=== PATIENT | female | born 1945 | race Caucasian/White ===

== ENCOUNTER 2021-03-14 12:58 | Inpatient (IN) | payer MEDICARE ==
[~2021-03-14] VITALS: Ht 149.9 cm; Wt 75.3 kg
[2021-03-14] MEDS ORDERED: ASPIRIN 81 MG CHEW TAB PO ONE (13:00)
[2021-03-14 13:48] LABS: BASOPHILS # (AUTO) 0.1 (0.0-0.1); BASOPHILS % 0.8 % (0.0-1.0); EOSINOPHILS # (AUTO) 0.3 (0.0-0.4); EOSINOPHILS % 2.4 % (0.0-6.0); HEMATOCRIT 41.5 % (34.2-44.1); HEMOGLOBIN 13.2 g/dL (12.0-16.0); LYMPHOCYTES # (AUTO) 2.6 (1.0-3.2); LYMPHOCYTES % 22.3 % (18.0-39.1); MEAN CORPUSCULAR HEMOGLOBIN 26.2 pg (28-32); MEAN CORPUSCULAR HGB CONC 31.8 g/dL (31-35); MEAN CORPUSCULAR VOLUME 82.5 fL (81-99); MONOCYTES # (AUTO) 0.3 (0.2-0.8); MONOCYTES % 2.4 % (4.4-11.3); NEUTROPHILS % 68.2 % (38.7-80.0); PLATELET COUNT 221 x10e3/uL (140-360); RED BLOOD COUNT 5.03 x10e6/uL (3.6-5.1); RED CELL DISTRIBUTION WIDTH 17.4 % (11.7-14.4)
[2021-03-14 14:03] LABS: ALANINE AMINOTRANSFERASE 21 IU/L (0-55); ALBUMIN 4.2 g/dL (3.5-5.0); ALBUMIN/GLOBULIN RATIO 1.4 (0.8-2.0); ALKALINE PHOSPHATASE 89 IU/L (40-150); ANION GAP 21.8 mmol/L (8-16); BLOOD UREA NITROGEN 15 mg/dL (7-26); BUN/CREATININE RATIO 21 (6-25); CALCIUM 8.9 mg/dL (8.4-10.2); CARBON DIOXIDE 22 mmol/L (22-29); CHLORIDE 95 mmol/L (98-107); CREATINE KINASE 41 IU/L (29-168); EST GLOMERULAR FILTRATION RATE > 60 ML/MIN (60-); GLUCOSE 103 mg/dL (74-118); POTASSIUM 3.8 mmol/L (3.5-5.1); SODIUM 135 mmol/L (136-145)
[2021-03-14 14:13] LABS: CLARITY,URINE SL CLOUDY (CLEAR); COLOR,URINE YELLOW (YELLOW); LEUKOCYTE ESTERASE ,URINE NEGATIVE (NEGATIVE); NITRITE,URINE POSITIVE (NEGATIVE); PROTEIN,URINE DIPSTICK 1+ (NEGATIVE)
[2021-03-14 14:14] LABS: KETONES,URINE 2+ (NEGATIVE); URINE UROBILINOGEN 1 mg/dL (0.2 - 1)
[2021-03-14 14:17] LABS: BACTERIA,URINE MANY /HPF; RBC,URINE 0-5 /HPF (0-5); WBC,URINE (MAN) 0-5 /HPF (0-5)
[2021-03-14] MEDS: PIPERACILLIN/TAZOBAC 3.375 GM in SODIUM CHLORIDE 0.9% 50ML 50 ML IV SCH ×2 (14:35→21:00)
[2021-03-14] MEDS ORDERED: SODIUM CHLORIDE 0.9% 1000ML 1,000 ML IV SCH (15:45)
[2021-03-14 20:00] VITALS: BP 147/59
[2021-03-14] MEDS ORDERED: PREGABALIN200 MG PO (20:21)
[2021-03-14] MEDS ORDERED: SIMVASTATIN20 MG PO (20:21)
[2021-03-14] MEDS ORDERED: BUPROPION HCL100 M1 PO (20:21)
[2021-03-14] MEDS ORDERED: CITALOPRAM HBR20 MG PO (20:21)
[2021-03-14] MEDS ORDERED: CELECOXIB100 MG PO (20:21)
[2021-03-14] MEDS ORDERED: OMEPRAZOLE40 MG PO (20:21)
[2021-03-14] MEDS ORDERED: HYDROCODON-ACE1 EAC9 PO (20:21)
[2021-03-14] MEDS ORDERED: PIPERACILLIN/TAZOBAC 3.375 GM VIAL ONE (20:48)
[2021-03-14] MEDS ORDERED: SODIUM CHLORIDE 0.9% 50ML 50 ML ONE (20:49)
[2021-03-14] MEDS: SODIUM CHLORIDE 0.9% 1000ML 1,000 ML IV SCH (21:45)
[2021-03-14] MEDS ORDERED: DOCUSATE SODIUM 100 MG CAP PO PRN (21:45)
[2021-03-14] MEDS ORDERED: MELATONIN 5 MG TABLET PO PRN (21:45)
[2021-03-14] MEDS ORDERED: HYDROCODONE/APAP 10MG-325MG TAB PO PRN (21:45)
[2021-03-14] MEDS ORDERED: ONDANSETRON HCL INJ 2MG/ML 2ML 2 MG/ML VIAL IV PRN (21:45)
[2021-03-14 23:05] LABS: CREATINE KINASE MB 1.4 ng/mL (0-5.0)
[2021-03-15] VITALS (8 sets, daily range): BP systolic 107–155; BP diastolic 59–98
[2021-03-15] MEDS ORDERED: PIPERACILLIN/TAZOBAC 3.375 GM VIAL ONE ×3 (03:15→14:25)
[2021-03-15] MEDS ORDERED: SODIUM CHLORIDE 0.9% 50ML 50 ML ONE ×3 (03:18→14:25)
[2021-03-15] MEDS: PIPERACILLIN/TAZOBAC 3.375 GM in SODIUM CHLORIDE 0.9% 50ML 50 ML IV SCH ×2 (03:23→09:12)
[2021-03-15 06:34] LABS: BASOPHILS # (AUTO) 0.1 (0.0-0.1); BASOPHILS % 0.5 % (0.0-1.0); EOSINOPHILS # (AUTO) 0.1 (0.0-0.4); EOSINOPHILS % 0.9 % (0.0-6.0); HEMATOCRIT 38.9 % (34.2-44.1); HEMOGLOBIN 12.1 g/dL (12.0-16.0); LYMPHOCYTES # (AUTO) 1.2 (1.0-3.2); LYMPHOCYTES % 11.5 % (18.0-39.1); MEAN CORPUSCULAR HEMOGLOBIN 25.9 pg (28-32); MEAN CORPUSCULAR HGB CONC 31.1 g/dL (31-35); MEAN CORPUSCULAR VOLUME 83.3 fL (81-99); MONOCYTES # (AUTO) 1.3 (0.2-0.8); MONOCYTES % 11.8 % (4.4-11.3); NEUTROPHILS # (AUTO) 7.7 (2.1-6.9); NEUTROPHILS % 72.1 % (38.7-80.0); PLATELET COUNT 202 x10e3/uL (140-360); RED BLOOD COUNT 4.67 x10e6/uL (3.6-5.1); RED CELL DISTRIBUTION WIDTH 17.5 % (11.7-14.4)
[2021-03-15 06:54] LABS: ALANINE AMINOTRANSFERASE 19 IU/L (0-55); ALBUMIN 3.9 g/dL (3.5-5.0); ALBUMIN/GLOBULIN RATIO 1.5 (0.8-2.0); ALKALINE PHOSPHATASE 79 IU/L (40-150); ANION GAP 21.7 mmol/L (8-16); BLOOD UREA NITROGEN 19 mg/dL (7-26); BUN/CREATININE RATIO 26 (6-25); CALCIUM 8.7 mg/dL (8.4-10.2); CARBON DIOXIDE 17 mmol/L (22-29); CHLORIDE 102 mmol/L (98-107); CREATININE, SERUM 0.72 mg/dL (0.57-1.11); EST GLOMERULAR FILTRATION RATE > 60 ML/MIN (60-); GLUCOSE 100 mg/dL (74-118); POTASSIUM 3.7 mmol/L (3.5-5.1); SODIUM 137 mmol/L (136-145)
[2021-03-15 07:21] LABS: CREATINE KINASE MB 1.5 ng/mL (0-5.0)
[2021-03-15] MEDS ORDERED: SODIUM CHLORIDE 0.9% 1000ML 1,000 ML IV ONE (08:00)
[2021-03-15] MEDS: BUPROPION HCL 100 MG PO SCH (09:00)
[2021-03-15] MEDS: CELECOXIB 100 MG CAP PO SCH ×2 (09:12→17:05)
[2021-03-15] MEDS: CITALOPRAM HYDROBROMIDE 20 MG TAB PO SCH (09:12)
[2021-03-15] MEDS: PREGABALIN 50 MG CAP PO SCH ×2 (09:13→17:05)
[2021-03-15] MEDS: SIMVASTATIN 20 MG TAB PO SCH (09:13)
[2021-03-15] MEDS: PANTOPRAZOLE SOD 40 MG TABEC PO SCH (09:13)
[2021-03-15 13:27] LABS: THYROID STIMULATING HORMONE 1.455 uIU/mL (0.350-4.940)
[2021-03-15] MEDS ORDERED: CEFTRIAXONE SOD 2 GM/100 ML ML IV SCH (14:30)
[2021-03-15] MEDS: SODIUM CHLORIDE 0.9% 1000ML 1,000 ML IV SCH ×2 (14:49→22:06)
[2021-03-15] MEDS: CEFTRIAXONE SOD 2 GM 100 ML IV SCH (15:50)
[2021-03-15] MEDS: HYDROCODONE/APAP 10MG-325MG TAB PO PRN (17:00)
[2021-03-16] VITALS (9 sets, daily range): BP systolic 116–171; BP diastolic 67–108
[2021-03-16] MEDS: SODIUM CHLORIDE 0.9% 1000ML 1,000 ML IV SCH ×3 (00:45→16:53)
[2021-03-16] MEDS ORDERED: IOPAMIDOL 370 MG/ML 200 ML INFUS..BTL INJ ONE ×2 (05:56→22:25)
[2021-03-16] MEDS ORDERED: SODIUM CHLORIDE 0.9% 50ML 50 ML ONE ×2 (05:57→22:26)
[2021-03-16 06:06] LABS: BASOPHILS # (AUTO) 0.1 (0.0-0.1); BASOPHILS % 0.4 % (0.0-1.0); EOSINOPHILS # (AUTO) 0.2 (0.0-0.4); EOSINOPHILS % 1.3 % (0.0-6.0); HEMATOCRIT 38.5 % (34.2-44.1); HEMOGLOBIN 12.1 g/dL (12.0-16.0); LYMPHOCYTES # (AUTO) 1.2 (1.0-3.2); LYMPHOCYTES % 9.9 % (18.0-39.1); MEAN CORPUSCULAR HEMOGLOBIN 26.3 pg (28-32); MEAN CORPUSCULAR HGB CONC 31.4 g/dL (31-35); MEAN CORPUSCULAR VOLUME 83.7 fL (81-99); MONOCYTES # (AUTO) 1.5 (0.2-0.8); MONOCYTES % 12.4 % (4.4-11.3); NEUTROPHILS # (AUTO) 8.7 (2.1-6.9); NEUTROPHILS % 72.4 % (38.7-80.0); PLATELET COUNT 250 x10e3/uL (140-360); RED CELL DISTRIBUTION WIDTH 17.7 % (11.7-14.4)
[2021-03-16 06:35] LABS: ANION GAP 20.2 mmol/L (8-16); BLOOD UREA NITROGEN 16 mg/dL (7-26); BUN/CREATININE RATIO 23 (6-25); CALCIUM 8.5 mg/dL (8.4-10.2); CARBON DIOXIDE 17 mmol/L (22-29); CHLORIDE 106 mmol/L (98-107); EST GLOMERULAR FILTRATION RATE > 60 ML/MIN (60-); GLUCOSE 107 mg/dL (74-118); POTASSIUM 3.2 mmol/L (3.5-5.1); SODIUM 140 mmol/L (136-145)
[2021-03-16] MEDS ORDERED: POTASSIUM CHLORIDE 20 MEQ TAB CR PO STA (07:59)
[2021-03-16 08:24] LABS: INR 1.07; PARTIAL THROMBOPLASTIN TIME 33.4 seconds (23.8-35.5); PROTHROMBIN TIME 14.5 seconds (11.9-14.5)
[2021-03-16] MEDS: BUPROPION HCL 100 MG PO SCH (09:00)
[2021-03-16] MEDS: SIMVASTATIN 20 MG TAB PO SCH (09:06)
[2021-03-16] MEDS: CITALOPRAM HYDROBROMIDE 20 MG TAB PO SCH (09:06)
[2021-03-16] MEDS: CELECOXIB 100 MG CAP PO SCH ×2 (09:06→17:11)
[2021-03-16] MEDS: PREGABALIN 50 MG CAP PO SCH ×2 (09:06→17:11)
[2021-03-16] MEDS: PANTOPRAZOLE SOD 40 MG TABEC PO SCH (09:06)
[2021-03-16] MEDS ORDERED: EPINEPHRINE HCL SYRINGE ONE (12:30)
[2021-03-16] MEDS ORDERED: SODIUM BICARBONATE 8.4% INJ 50 ML SYR ONE (12:30)
[2021-03-16] MEDS: VANCOMYCIN 1GM/NS 250 ML 250 ML IV SCH (13:41)
[2021-03-16] MEDS: HYDROCODONE/APAP 10MG-325MG TAB PO PRN (15:20)
[2021-03-16] MEDS ORDERED: HYDRALAZINE HCL 20 MG/ML VIAL IV PRN (16:30)
[2021-03-16] MEDS: CEFTRIAXONE SOD 2 GM 100 ML IV SCH (16:53)
[2021-03-16] MEDS ORDERED: DIPHENHYDRAMINE HCL INJ 50 MG/ML VIAL IV PRN (18:15)
[2021-03-16 21:30] LABS: HEMATOCRIT 43.6 % (34.2-44.1); HEMOGLOBIN 13.2 g/dL (12.0-16.0); MEAN CORPUSCULAR HEMOGLOBIN 26.3 pg (28-32); MEAN CORPUSCULAR HGB CONC 30.3 g/dL (31-35); MEAN CORPUSCULAR VOLUME 86.9 fL (81-99); PLATELET COUNT 206 x10e3/uL (140-360); RED BLOOD COUNT 5.02 x10e6/uL (3.6-5.1); RED CELL DISTRIBUTION WIDTH 18.3 % (11.7-14.4)
[2021-03-16 21:49] LABS: ALANINE AMINOTRANSFERASE 137 IU/L (0-55); ALBUMIN 3.4 g/dL (3.5-5.0); ALBUMIN/GLOBULIN RATIO 1.3 (0.8-2.0); ALKALINE PHOSPHATASE 77 IU/L (40-150); ANION GAP 23.6 mmol/L (8-16); BLOOD UREA NITROGEN 18 mg/dL (7-26); BUN/CREATININE RATIO 22 (6-25); CARBON DIOXIDE 16 mmol/L (22-29); CHLORIDE 111 mmol/L (98-107); CREATINE KINASE 123 IU/L (29-168); CREATININE, SERUM 0.81 mg/dL (0.57-1.11); EST GLOMERULAR FILTRATION RATE > 60 ML/MIN (60-); GLUCOSE 165 mg/dL (74-118); POTASSIUM 3.6 mmol/L (3.5-5.1); SODIUM 147 mmol/L (136-145)
[2021-03-16] MEDS: PROPOFOL IV EMULSION 10MG/ML 100 ML IV PRN (22:30)
[2021-03-16] MEDS ORDERED: AMIODARONE HCL 900 MG in DEXTROSE 5% 500ML 500 ML IV ONE (23:30)
[2021-03-16 23:36] LABS: BAND NEUTROPHILS % (MANUAL) 2 %; EOSINOPHILS % (MANUAL) 1 % (0-7); LYMPHOCYTES % (MANUAL) 10 % (19-48); METAMYELOCYTES % (MANUAL) 5 % (0-0); MONOCYTES % (MANUAL) 4 % (3.4-9.0); MYELOCYTES % (MANUAL) 1 % (0-0); NEUTROPHILS % (MANUAL) 76 % (40-74); NUCLEATED RED BLOOD CELLS 1; PROMYELOCYTES % (MANUAL) 1 % (0-0); SMUDGE CELLS FEW
[2021-03-16 23:37] LABS: PLATELET ESTIMATE ADEQUATE
[2021-03-16 23:38] LABS: PLATELET MORPHOLOGY COMMENT NORMAL; RBC MORPHOLOGY COMMENT NORMAL
[2021-03-16] MEDS ORDERED: AMIODARONE 900MG 500 ML IV ONE (23:39)
[2021-03-17] VITALS (17 sets, daily range): BP systolic 118–169; BP diastolic 54–100
[2021-03-17] MEDS ORDERED: HEPARIN SOD (PORCINE) 5,000 UNIT/ML VIAL IV ONE
[2021-03-17] MEDS ORDERED: HEPARIN 25,000 UNIT DRIP IV ONE
[2021-03-17] MEDS ORDERED: NOREPINEPHRINE INJ 4MG/4ML 8 MG in DEXTROSE 5% 250ML 250 ML IV PRN ×2
[2021-03-17] MEDS: HEPARIN 25,000 UNIT 1,400 UNIT in DEXTROSE 5% 250ML 250 ML IV SCH (00:30)
[2021-03-17 00:37] LABS: INR 1.13; PROTHROMBIN TIME 15.2 seconds (11.9-14.5)
[2021-03-17 00:38] LABS: PARTIAL THROMBOPLASTIN TIME 31.5 seconds (23.8-35.5)
[2021-03-17] MEDS: VANCOMYCIN 1GM/NS 250 ML 250 ML IV SCH ×2 (01:16→13:33)
[2021-03-17 04:46] LABS: BASOPHILS % 0.2 % (0.0-1.0); EOSINOPHILS % 0.1 % (0.0-6.0); HEMATOCRIT 36.9 % (34.2-44.1); HEMOGLOBIN 11.7 g/dL (12.0-16.0); LYMPHOCYTES # (AUTO) 1.4 (1.0-3.2); MEAN CORPUSCULAR HEMOGLOBIN 26.5 pg (28-32); MEAN CORPUSCULAR HGB CONC 31.7 g/dL (31-35); MONOCYTES # (AUTO) 1.6 (0.2-0.8); MONOCYTES % 8.4 % (4.4-11.3); NEUTROPHILS # (AUTO) 15.4 (2.1-6.9); NEUTROPHILS % 79.7 % (38.7-80.0); PLATELET COUNT 225 x10e3/uL (140-360); RED BLOOD COUNT 4.42 x10e6/uL (3.6-5.1); RED CELL DISTRIBUTION WIDTH 17.6 % (11.7-14.4)
[2021-03-17 04:53] LABS: MEAN CORPUSCULAR VOLUME 83.5 fL (81-99)
[2021-03-17 05:12] LABS: CREATINE KINASE MB 15.5 ng/mL (0-5.0)
[2021-03-17 05:57] LABS: ANION GAP 22.7 mmol/L (8-16); BLOOD UREA NITROGEN 17 mg/dL (7-26); BUN/CREATININE RATIO 25 (6-25); CALCIUM 7.9 mg/dL (8.4-10.2); CARBON DIOXIDE 17 mmol/L (22-29); CHLORIDE 108 mmol/L (98-107); CREATININE, SERUM 0.69 mg/dL (0.57-1.11); EST GLOMERULAR FILTRATION RATE > 60 ML/MIN (60-); GLUCOSE 140 mg/dL (74-118); SODIUM 145 mmol/L (136-145)
[2021-03-17 05:58] LABS: POTASSIUM 2.7 mmol/L (3.5-5.1)
[2021-03-17] MEDS ORDERED: POTASSIUM CHLORIDE 20MEQ/100ML 200 ML IV ONE (07:00)
[2021-03-17 07:42] LABS: ABG HCO3 20 mmol/L (22-26); ABG PCO2 22 mmHg (35-45); ABG PH 7.57 (7.35-7.45); ABG PO2 190 mmHg (80-105); ABG TCO2 20
[2021-03-17] MEDS: SIMVASTATIN 20 MG TAB PO SCH (08:15)
[2021-03-17] MEDS: PANTOPRAZOLE 40 MG 10ML VIAL IV SCH (08:15)
[2021-03-17] MEDS: PREGABALIN 50 MG CAP PO SCH ×2 (08:15→16:07)
[2021-03-17] MEDS: CITALOPRAM HYDROBROMIDE 20 MG TAB PO SCH (08:15)
[2021-03-17] MEDS: CELECOXIB 100 MG CAP PO SCH (08:28)
[2021-03-17] MEDS: BUPROPION HCL 100 MG PO SCH (08:28)
[2021-03-17] MEDS ORDERED: HYDRALAZINE HCL 20 MG/ML VIAL IV PRN (10:15)
[2021-03-17 11:07] LABS: ABG HCO3 21 mmol/L (22-26); ABG PCO2 30 mmHg (35-45); ABG PH 7.45 (7.35-7.45); ABG PO2 100 mmHg (80-105); ABG TCO2 22
[2021-03-17] MEDS ORDERED: SUCCINYLCHOLINE CHLORIDE 20 MG/ML 10ML VIAL ONE (12:28)
[2021-03-17] MEDS: CEFTRIAXONE SOD 2 GM 100 ML IV SCH (14:58)
[2021-03-17] MEDS ORDERED: NOREPINEPHRINE 8 MG/D5W 250 ML 250 ML IV SCH (17:30)
[2021-03-18] VITALS (17 sets, daily range): BP systolic 116–185; BP diastolic 67–131
[2021-03-18] MEDS: VANCOMYCIN 1GM/NS 250 ML 250 ML IV SCH (00:35)
[2021-03-18] MEDS: HEPARIN 25,000 UNIT 1,400 UNIT in DEXTROSE 5% 250ML 250 ML IV SCH ×2 (01:31→10:30)
[2021-03-18] MEDS: PROPOFOL IV EMULSION 10MG/ML 100 ML IV PRN (01:32)
[2021-03-18] MEDS ORDERED: HEPARIN 25,000 UNIT DRIP IV ONE (01:37)
[2021-03-18 04:56] LABS: BASOPHILS # (AUTO) 0.1 (0.0-0.1); BASOPHILS % 0.6 % (0.0-1.0); EOSINOPHILS # (AUTO) 0.2 (0.0-0.4); EOSINOPHILS % 0.9 % (0.0-6.0); HEMATOCRIT 39.2 % (34.2-44.1); HEMOGLOBIN 12.4 g/dL (12.0-16.0); LYMPHOCYTES # (AUTO) 1.5 (1.0-3.2); LYMPHOCYTES % 7.8 % (18.0-39.1); MEAN CORPUSCULAR HEMOGLOBIN 26.6 pg (28-32); MEAN CORPUSCULAR HGB CONC 31.6 g/dL (31-35); MEAN CORPUSCULAR VOLUME 83.9 fL (81-99); MONOCYTES # (AUTO) 1.4 (0.2-0.8); MONOCYTES % 7.7 % (4.4-11.3); NEUTROPHILS % 75.4 % (38.7-80.0); PLATELET COUNT 232 x10e3/uL (140-360); RED BLOOD COUNT 4.67 x10e6/uL (3.6-5.1); RED CELL DISTRIBUTION WIDTH 18.2 % (11.7-14.4)
[2021-03-18 05:22] LABS: ALANINE AMINOTRANSFERASE 73 IU/L (0-55); ALBUMIN 3.1 g/dL (3.5-5.0); ALBUMIN/GLOBULIN RATIO 1.2 (0.8-2.0); ALKALINE PHOSPHATASE 78 IU/L (40-150); ANION GAP 15.7 mmol/L (8-16); BLOOD UREA NITROGEN 14 mg/dL (7-26); BUN/CREATININE RATIO 23 (6-25); CALCIUM 8.1 mg/dL (8.4-10.2); CARBON DIOXIDE 22 mmol/L (22-29); CHLORIDE 106 mmol/L (98-107); EST GLOMERULAR FILTRATION RATE > 60 ML/MIN (60-); GLUCOSE 128 mg/dL (74-118); SODIUM 141 mmol/L (136-145)
[2021-03-18 05:25] LABS: POTASSIUM 2.7 mmol/L (3.5-5.1)
[2021-03-18] MEDS ORDERED: POTASSIUM CHLORIDE 20MEQ/100ML 200 ML IV ONE (05:30)
[2021-03-18] MEDS ORDERED: POTASSIUM CHLORIDE 20MEQ/100ML 200 ML ONE (05:41)
[2021-03-18] MEDS ORDERED: METOPROLOL TARTRATE 50 MG TAB NG ONE (06:15)
[2021-03-18] MEDS ORDERED: METOPROLOL TARTRATE INJ 1 MG/ML VIAL IV ONE (06:15)
[2021-03-18] MEDS: BUPROPION HCL 100 MG PO SCH (07:19)
[2021-03-18] MEDS: PREGABALIN 50 MG CAP PO SCH (08:41)
[2021-03-18] MEDS: CITALOPRAM HYDROBROMIDE 20 MG TAB PO SCH (08:41)
[2021-03-18] MEDS: SIMVASTATIN 20 MG TAB PO SCH (08:41)
[2021-03-18] MEDS: PANTOPRAZOLE 40 MG 10ML VIAL IV SCH (08:41)
[2021-03-18] MEDS ORDERED: LEVETIRACETAM 500MG/5ML VIAL 2,000 MG in SODIUM CHLORIDE 0.9% 100 ML 100 ML IV ONE (09:30)
[2021-03-18] MEDS: AMIODARONE HCL 200 MG TAB PO SCH ×2 (09:33→17:02)
[2021-03-18 10:10] LABS: ABG PCO2 36 mmHg (35-45); ABG PH 7.46 (7.35-7.45)
[2021-03-18 10:11] LABS: ABG HCO3 26 mmol/L (22-26); ABG PO2 85 mmHg (80-105); ABG TCO2 27
[2021-03-18] MEDS: METOPROLOL TARTRATE 25 MG TAB NG SCH ×3 (12:05→23:45)
[2021-03-18] MEDS: NYSTATIN 15 GM POWDER UD BTL TOP SCH (13:08)
[2021-03-18] MEDS: ACETAMINOPHEN 325 MG TAB PO PRN (13:32)
[2021-03-18] MEDS: CEFTRIAXONE SOD 2 GM 100 ML IV SCH (14:02)
[2021-03-18] MEDS: LEVETIRACETAM 500MG/5ML VIAL 500 MG in SODIUM CHLORIDE 0.9% 100 ML 100 ML IV SCH (18:49)
[2021-03-19] VITALS (26 sets, daily range): BP systolic 107–168; BP diastolic 54–83
[2021-03-19] MEDS: NYSTATIN 15 GM POWDER UD BTL TOP SCH (05:30)
[2021-03-19] MEDS: METOPROLOL TARTRATE 25 MG TAB NG SCH ×4 (06:31→23:16)
[2021-03-19] MEDS: LEVETIRACETAM 500MG/5ML VIAL 500 MG in SODIUM CHLORIDE 0.9% 100 ML 100 ML IV SCH ×2 (06:31→17:30)
[2021-03-19] MEDS ORDERED: POTASSIUM CHLORIDE 20MEQ/100ML 200 ML IV ONE (07:30)
[2021-03-19 07:51] LABS: BASOPHILS # (AUTO) 0.1 (0.0-0.1); BASOPHILS % 0.6 % (0.0-1.0); EOSINOPHILS % 0.1 % (0.0-6.0); HEMATOCRIT 40.5 % (34.2-44.1); HEMOGLOBIN 12.7 g/dL (12.0-16.0); LYMPHOCYTES # (AUTO) 1.5 (1.0-3.2); LYMPHOCYTES % 8.5 % (18.0-39.1); MEAN CORPUSCULAR HEMOGLOBIN 26.6 pg (28-32); MEAN CORPUSCULAR HGB CONC 31.4 g/dL (31-35); MEAN CORPUSCULAR VOLUME 84.9 fL (81-99); MONOCYTES # (AUTO) 1.5 (0.2-0.8); MONOCYTES % 8.4 % (4.4-11.3); NEUTROPHILS # (AUTO) 13.1 (2.1-6.9); NEUTROPHILS % 75.6 % (38.7-80.0); PLATELET COUNT 218 x10e3/uL (140-360); RED BLOOD COUNT 4.77 x10e6/uL (3.6-5.1); RED CELL DISTRIBUTION WIDTH 19.1 % (11.7-14.4)
[2021-03-19 08:38] LABS: ALANINE AMINOTRANSFERASE 41 IU/L (0-55); ALBUMIN 2.8 g/dL (3.5-5.0); ALKALINE PHOSPHATASE 75 IU/L (40-150); ANION GAP 13.2 mmol/L (8-16); BLOOD UREA NITROGEN 24 mg/dL (7-26); BUN/CREATININE RATIO 41 (6-25); CALCIUM 8.4 mg/dL (8.4-10.2); CARBON DIOXIDE 26 mmol/L (22-29); CHLORIDE 108 mmol/L (98-107); CREATININE, SERUM 0.59 mg/dL (0.57-1.11); EST GLOMERULAR FILTRATION RATE > 60 ML/MIN (60-); GLUCOSE 155 mg/dL (74-118); POTASSIUM 3.2 mmol/L (3.5-5.1); SODIUM 144 mmol/L (136-145)
[2021-03-19] MEDS: BUPROPION HCL 100 MG PO SCH (08:59)
[2021-03-19] MEDS: SIMVASTATIN 20 MG TAB PO SCH (08:59)
[2021-03-19] MEDS: CITALOPRAM HYDROBROMIDE 20 MG TAB PO SCH (08:59)
[2021-03-19] MEDS: PANTOPRAZOLE 40 MG 10ML VIAL IV SCH (08:59)
[2021-03-19] MEDS: AMIODARONE HCL 200 MG TAB PO SCH ×2 (08:59→17:28)
[2021-03-19 11:27] LABS: ABG HCO3 27 mmol/L (22-26); ABG PCO2 37 mmHg (35-45); ABG PH 7.46 (7.35-7.45); ABG PO2 92 mmHg (80-105); ABG TCO2 28
[2021-03-19 12:46] LABS: LYMPHOCYTES % (MANUAL) 7 % (19-48); MONOCYTES % (MANUAL) 6 % (3.4-9.0); NEUTROPHILS % (MANUAL) 84 % (40-74); NUCLEATED RED BLOOD CELLS 5
[2021-03-19 12:47] LABS: PLATELET ESTIMATE ADEQUATE; PLATELET MORPHOLOGY COMMENT NORMAL; RBC MORPHOLOGY COMMENT ABNORMAL
[2021-03-19 12:49] LABS: POLYCHROMASIA FEW
[2021-03-19] MEDS: CEFTRIAXONE SOD 2 GM 100 ML IV SCH (14:44)
[2021-03-20] VITALS (26 sets, daily range): BP systolic 136–153; BP diastolic 57–77
[2021-03-20] MEDS: HEPARIN 25,000 UNIT 1,400 UNIT in DEXTROSE 5% 250ML 250 ML IV SCH ×2
[2021-03-20] MEDS: ACETAMINOPHEN 325 MG TAB PO PRN (03:19)
[2021-03-20 05:58] LABS: BASOPHILS # (AUTO) 0.1 (0.0-0.1); BASOPHILS % 0.5 % (0.0-1.0); EOSINOPHILS % 0.1 % (0.0-6.0); HEMATOCRIT 39.9 % (34.2-44.1); HEMOGLOBIN 12.4 g/dL (12.0-16.0); LYMPHOCYTES # (AUTO) 1.6 (1.0-3.2); LYMPHOCYTES % 9.6 % (18.0-39.1); MEAN CORPUSCULAR HEMOGLOBIN 26.9 pg (28-32); MEAN CORPUSCULAR HGB CONC 31.1 g/dL (31-35); MEAN CORPUSCULAR VOLUME 86.6 fL (81-99); MONOCYTES # (AUTO) 1.8 (0.2-0.8); MONOCYTES % 10.6 % (4.4-11.3); NEUTROPHILS % 72.7 % (38.7-80.0); PLATELET COUNT 235 x10e3/uL (140-360); RED BLOOD COUNT 4.61 x10e6/uL (3.6-5.1); RED CELL DISTRIBUTION WIDTH 19.2 % (11.7-14.4)
[2021-03-20] MEDS: METOPROLOL TARTRATE 25 MG TAB NG SCH ×3 (06:26→17:14)
[2021-03-20] MEDS: LEVETIRACETAM 500MG/5ML VIAL 500 MG in SODIUM CHLORIDE 0.9% 100 ML 100 ML IV SCH ×2 (06:31→17:14)
[2021-03-20 06:40] LABS: ALANINE AMINOTRANSFERASE 30 IU/L (0-55); ALBUMIN 2.8 g/dL (3.5-5.0); ALBUMIN/GLOBULIN RATIO 1.1 (0.8-2.0); ALKALINE PHOSPHATASE 68 IU/L (40-150); ANION GAP 13.4 mmol/L (8-16); BLOOD UREA NITROGEN 28 mg/dL (7-26); BUN/CREATININE RATIO 46 (6-25); CALCIUM 8.5 mg/dL (8.4-10.2); CARBON DIOXIDE 28 mmol/L (22-29); CHLORIDE 111 mmol/L (98-107); CREATININE, SERUM 0.61 mg/dL (0.57-1.11); EST GLOMERULAR FILTRATION RATE > 60 ML/MIN (60-); GLUCOSE 172 mg/dL (74-118); POTASSIUM 3.4 mmol/L (3.5-5.1); SODIUM 149 mmol/L (136-145)
[2021-03-20] MEDS: BUPROPION HCL 100 MG PO SCH (08:01)
[2021-03-20] MEDS: CITALOPRAM HYDROBROMIDE 20 MG TAB PO SCH (08:01)
[2021-03-20] MEDS: SIMVASTATIN 20 MG TAB PO SCH (08:01)
[2021-03-20] MEDS: PANTOPRAZOLE 40 MG 10ML VIAL IV SCH (08:01)
[2021-03-20] MEDS: AMIODARONE HCL 200 MG TAB PO SCH ×2 (08:01→17:00)
[2021-03-20] MEDS: NYSTATIN 15 GM POWDER UD BTL TOP SCH (08:01)
[2021-03-20] MEDS ORDERED: KCL 20 MEQ PACKET/ ORAL SOLN NG ONE (10:00)
[2021-03-20] MEDS: CEFTRIAXONE SOD 2 GM 100 ML IV SCH (14:05)
[2021-03-20] MEDS: ACETAMINOPHEN 325 MG/10 ML UDC NG PRN (18:49)
[2021-03-20] MEDS ORDERED: HEPARIN 25,000 UNIT DRIP IV ONE (22:50)
[2021-03-20] MEDS ORDERED: SODIUM CHLORIDE 0.9% 250ML 250 ML ONE (23:03)
[2021-03-21] VITALS (26 sets, daily range): BP systolic 95–157; BP diastolic 53–99
[2021-03-21] MEDS: METOPROLOL TARTRATE 25 MG TAB NG SCH ×4 (00:06→17:29)
[2021-03-21] MEDS: HEPARIN 25,000 UNIT 1,400 UNIT in DEXTROSE 5% 250ML 250 ML IV SCH ×2 (00:51→17:32)
[2021-03-21 05:11] LABS: BASOPHILS # (AUTO) 0.1 (0.0-0.1); BASOPHILS % 0.4 % (0.0-1.0); EOSINOPHILS # (AUTO) 0.1 (0.0-0.4); EOSINOPHILS % 0.4 % (0.0-6.0); HEMATOCRIT 37.7 % (34.2-44.1); HEMOGLOBIN 11.3 g/dL (12.0-16.0); LYMPHOCYTES # (AUTO) 1.8 (1.0-3.2); MEAN CORPUSCULAR HEMOGLOBIN 26.3 pg (28-32); MEAN CORPUSCULAR VOLUME 87.9 fL (81-99); MONOCYTES # (AUTO) 2.1 (0.2-0.8); MONOCYTES % 12.9 % (4.4-11.3); NEUTROPHILS # (AUTO) 11.1 (2.1-6.9); NEUTROPHILS % 69.1 % (38.7-80.0); PLATELET COUNT 197 x10e3/uL (140-360); RED BLOOD COUNT 4.29 x10e6/uL (3.6-5.1); RED CELL DISTRIBUTION WIDTH 19.7 % (11.7-14.4)
[2021-03-21 05:39] LABS: ALANINE AMINOTRANSFERASE 34 IU/L (0-55); ALBUMIN 2.8 g/dL (3.5-5.0); ALBUMIN/GLOBULIN RATIO 1.2 (0.8-2.0); ALKALINE PHOSPHATASE 67 IU/L (40-150); ANION GAP 13.7 mmol/L (8-16); BLOOD UREA NITROGEN 26 mg/dL (7-26); BUN/CREATININE RATIO 41 (6-25); CALCIUM 8.2 mg/dL (8.4-10.2); CARBON DIOXIDE 29 mmol/L (22-29); CHLORIDE 112 mmol/L (98-107); CREATININE, SERUM 0.63 mg/dL (0.57-1.11); EST GLOMERULAR FILTRATION RATE > 60 ML/MIN (60-); GLUCOSE 157 mg/dL (74-118); POTASSIUM 3.7 mmol/L (3.5-5.1); SODIUM 151 mmol/L (136-145)
[2021-03-21] MEDS: ACETAMINOPHEN 325 MG/10 ML UDC NG PRN (05:45)
[2021-03-21] MEDS: LEVETIRACETAM 500MG/5ML VIAL 500 MG in SODIUM CHLORIDE 0.9% 100 ML 100 ML IV SCH ×2 (06:18→17:29)
[2021-03-21 08:26] LABS: INR 0.92
[2021-03-21] MEDS ORDERED: DEXTROSE 5% 500 ML IV ONE (08:30)
[2021-03-21] MEDS: BUPROPION HCL 100 MG PO SCH (09:00)
[2021-03-21] MEDS: CITALOPRAM HYDROBROMIDE 20 MG TAB PO SCH (09:37)
[2021-03-21] MEDS: PANTOPRAZOLE 40 MG 10ML VIAL IV SCH (09:37)
[2021-03-21] MEDS: SIMVASTATIN 20 MG TAB PO SCH (09:38)
[2021-03-21] MEDS: NYSTATIN 15 GM POWDER UD BTL TOP SCH (09:38)
[2021-03-21] MEDS: AMIODARONE HCL 200 MG TAB PO SCH ×2 (09:39→17:27)
[2021-03-21 11:36] LABS: ABG HCO3 30 mmol/L (22-26); ABG PCO2 40 mmHg (35-45); ABG PH 7.48 (7.35-7.45); ABG PO2 71 mmHg (80-105); ABG TCO2 31
[2021-03-21] MEDS: CEFTRIAXONE SOD 2 GM 100 ML IV SCH (14:46)
[2021-03-21 15:23] LABS: APPEARANCE,CSF CLEAR (CLEAR); COLOR,CSF COLORLESS (COLORLESS)
[2021-03-21 15:24] LABS: TUBE NUMBER 3; WHITE BLOOD CELL,CSF 1 cells/uL (0-5)
[2021-03-22] VITALS (13 sets, daily range): BP systolic 119–143; BP diastolic 52–67
[2021-03-22] MEDS: METOPROLOL TARTRATE 25 MG TAB NG SCH ×2 (00:18→05:27)
[2021-03-22] MEDS: ACETAMINOPHEN 325 MG/10 ML UDC NG PRN (00:18)
[2021-03-22] MEDS: LEVETIRACETAM 500MG/5ML VIAL 500 MG in SODIUM CHLORIDE 0.9% 100 ML 100 ML IV SCH (05:27)
[2021-03-22 05:54] LABS: BASOPHILS # (AUTO) 0.1 (0.0-0.1); BASOPHILS % 0.5 % (0.0-1.0); EOSINOPHILS # (AUTO) 0.1 (0.0-0.4); EOSINOPHILS % 0.6 % (0.0-6.0); HEMOGLOBIN 11.1 g/dL (12.0-16.0); LYMPHOCYTES # (AUTO) 1.6 (1.0-3.2); LYMPHOCYTES % 10.4 % (18.0-39.1); MEAN CORPUSCULAR HEMOGLOBIN 26.8 pg (28-32); MEAN CORPUSCULAR VOLUME 89.4 fL (81-99); MONOCYTES # (AUTO) 1.9 (0.2-0.8); MONOCYTES % 12.2 % (4.4-11.3); NEUTROPHILS % 70.7 % (38.7-80.0); PLATELET COUNT 194 x10e3/uL (140-360); RED BLOOD COUNT 4.14 x10e6/uL (3.6-5.1); RED CELL DISTRIBUTION WIDTH 19.8 % (11.7-14.4)
[2021-03-22 06:23] LABS: ALANINE AMINOTRANSFERASE 52 IU/L (0-55); ALBUMIN 2.8 g/dL (3.5-5.0); ALBUMIN/GLOBULIN RATIO 1.2 (0.8-2.0); ALKALINE PHOSPHATASE 73 IU/L (40-150); ANION GAP 12.4 mmol/L (8-16); BLOOD UREA NITROGEN 26 mg/dL (7-26); BUN/CREATININE RATIO 40 (6-25); CALCIUM 8.3 mg/dL (8.4-10.2); CARBON DIOXIDE 29 mmol/L (22-29); CHLORIDE 112 mmol/L (98-107); CREATININE, SERUM 0.65 mg/dL (0.57-1.11); EST GLOMERULAR FILTRATION RATE > 60 ML/MIN (60-); GLUCOSE 169 mg/dL (74-118); POTASSIUM 3.4 mmol/L (3.5-5.1); SODIUM 150 mmol/L (136-145)
[2021-03-22 08:04] LABS: LYMPHOCYTES % (MANUAL) 8 % (19-48); METAMYELOCYTES % (MANUAL) 2 % (0-0); MONOCYTES % (MANUAL) 8 % (3.4-9.0); NEUTROPHILS % (MANUAL) 80 % (40-74); NUCLEATED RED BLOOD CELLS 2
[2021-03-22 08:05] LABS: ANISOCYTOSIS SLIG; HYPOCHROMASIA SLIGHT; MICROCYTOSIS SLIG; POIKILOCYTOSIS SLIGHT; POLYCHROMASIA FEW; RBC MORPHOLOGY COMMENT ABNORMAL
[2021-03-22 08:06] LABS: PLATELET ESTIMATE ADEQUATE; PLATELET MORPHOLOGY COMMENT NORMAL
[2021-03-22] MEDS ORDERED: BALSAM PERU/CASTOR OIL 60 GM OINT...G. TP SCH (09:00)
[2021-03-22] MEDS: BUPROPION HCL 100 MG PO SCH (09:00)
[2021-03-22] MEDS: CITALOPRAM HYDROBROMIDE 20 MG TAB PO SCH (09:24)
[2021-03-22] MEDS: PANTOPRAZOLE 40 MG 10ML VIAL IV SCH (09:24)
[2021-03-22] MEDS: AMIODARONE HCL 200 MG TAB PO SCH (09:25)
[2021-03-22] MEDS: SIMVASTATIN 20 MG TAB PO SCH (09:25)
[2021-03-22] MEDS: NYSTATIN 15 GM POWDER UD BTL TOP SCH (09:39)
[2021-03-22] MEDS ORDERED: MORPHINE SULFATE INJ 2 MG/ML SYR IV PRN (10:30)
[2021-03-22] MEDS ORDERED: LORAZEPAM INJ 2 MG/ML VIAL IV PRN (10:30)
[2021-03-22] MEDS ORDERED: PIPERACILLIN/TAZOBAC 3.375 GM in SODIUM CHLORIDE 0.9% 50ML 50 ML IV SCH (12:00)
[2021-03-22] MEDS ORDERED: CEFTRIAXONE SOD 2 GM 100 ML IV SCH (14:45)
== END 2021-03-22 15:18 | disposition expired | DRG 853 ==
LOC: ER 13:05 → ERHOLD 16:01 → MED/SURG3 18:15 → ICU 03-16 21:49
PROVIDERS: ADMIT Internal Medicine; ATTEND Internal Medicine
PROC: 5A1955Z Respiratory Ventilation, Greater than 96 Consecutive Hours (ICD-10-PCS; principal; 2021-03-16)
PROC: 0BH17EZ Insertion of Endotracheal Airway into Trachea, Via Natural or Artificial Opening (ICD-10-PCS; 2021-03-16)
PROC: 02HV33Z Insertion of Infusion Device into Superior Vena Cava, Percutaneous Approach (ICD-10-PCS; 2021-03-16)
PROC: B548ZZA Ultrasonography of Superior Vena Cava, Guidance (ICD-10-PCS; 2021-03-16)
PROC: 5A12012 Performance of Cardiac Output, Single, Manual (ICD-10-PCS; 2021-03-16)
PROC: 5A12012 Performance of Cardiac Output, Single, Manual (ICD-10-PCS; 2021-03-16)
PROC: 0KBP3ZX Excision of Left Hip Muscle, Percutaneous Approach, Diagnostic (ICD-10-PCS; 2021-03-17)
PROC: 009U3ZX Drainage of Spinal Canal, Percutaneous Approach, Diagnostic (ICD-10-PCS; 2021-03-21)
PROC: B01B1ZZ Fluoroscopy of Spinal Cord using Low Osmolar Contrast (ICD-10-PCS; 2021-03-21)
DX: A41.9 Sepsis, unspecified organism (principal); G93.41 Metabolic encephalopathy; J96.00 Acute respiratory failure, unspecified whether with hypoxia or hypercapnia; K68.12 Psoas muscle abscess; I21.A1 Myocardial infarction type 2; R65.21 Severe sepsis with septic shock; I26.99 Other pulmonary embolism without acute cor pulmonale; N39.0 Urinary tract infection, site not specified; E44.0 Moderate protein-calorie malnutrition; M86.8X8 Other osteomyelitis, other site; G93.1 Anoxic brain damage, not elsewhere classified; I82.422 Acute embolism and thrombosis of left iliac vein; C41.4 Malignant neoplasm of pelvic bones, sacrum and coccyx; C85.10 Unspecified B-cell lymphoma, unspecified site; E78.5 Hyperlipidemia, unspecified; M54.9 Dorsalgia, unspecified; G89.29 Other chronic pain; E66.01 Morbid (severe) obesity due to excess calories; I10 Essential (primary) hypertension; G62.9 Polyneuropathy, unspecified; Z20.822 Contact with and (suspected) exposure to COVID-19; Z68.36 Body mass index [BMI] 36.0-36.9, adult; R29.6 Repeated falls; Z96.82 Presence of neurostimulator; R41.9 Unspecified symptoms and signs involving cognitive functions and awareness; I46.9 Cardiac arrest, cause unspecified; E87.6 Hypokalemia; R57.0 Cardiogenic shock; I48.0 Paroxysmal atrial fibrillation; B96.20 Unspecified Escherichia coli [E. coli] as the cause of diseases classified elsewhere; R56.9 Unspecified convulsions; Z66 Do not resuscitate
CPT/HCPCS: 20206; 31500; 36415; 36569; 36600; 62328; 70450; 71045; 72126; 72129; 72132; 74018; 74177; 74470; 76942; 80048; 80053; 80202; 81001; 82140; 82550; 82553; 82805; 82945; 83605; 83735; 83880; 84157; 84443; 84484; 84550; 85007; 85025; 85027; 85610; 85730; 86789; 87040; 87070; 87071; 87075; 87086; 87186; 87205; 88305; 89051; 92950; 93005; 93306; 93970; 94002; 94003; 95812; 96361; 99251; 99284; J0171; J0330; J0360; J0696; J1644; J2543; J3370; J3480; J7030; J7050; J7060; J7070; Q9967; U0002